=== PATIENT | female | born 1945 | race Caucasian/White ===

== ENCOUNTER 2017-10-09 12:34 | Emergency (ER) | payer MEDICARE ==
[~2017-10-09] VITALS: Ht 167.6 cm; Wt 70.3 kg
[2017-10-09 14:11] LABS: STREPTOCOCCUS GRP A ANTIGEN NEGATIVE (NEGATIVE)
--- NOTE | 2017-10-09 14:13 | Diagnostic Imaging Report ---
History:Headache for 4 days Comparison studies:None Technique: Axial images were obtained from the skull base to the vertex. Coronal and sagittal images reconstructed from the axial data. Intravenous contrast: None Findings: Scalp/skull: No abnormalities. Extra-axial spaces: Right hemispheric hypodense subdural collection measuring up to 0.8 cm in maximum thickness with mild flattening of the adjacent sulci, without midline shift or herniation. No increased densities to suggest acute component. Brain sulci: Mildly prominent. Ventricles: Mild compensatory dilatation. No hydrocephalus. Parenchyma: Few hypodensities in the supratentorial white matter are small vessel ischemic changes. No masses, acute hemorrhage, acute or chronic cortical vascular insults. Sellar/suprasellar region: No abnormalities. Craniocervical junction: Patent foramen magnum. No Chiari one malformation. Incidental findings: Atherosclerotic calcifications in the carotid siphons . Mild mucosal thickening at the left sphenoid sinus, secondary to nonspecific inflammatory changes. Impression: No acute abnormalities. Chronic findings: 1. 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 2. Mild generalized volume loss. 3. Mild supratentorial white matter small vessel ischemic changes. The above finding was reported and acknowledged by Dr. Bravo at 2:15 PM 10/09/2017. Signed by: DR Ilir Sarabia M.D. on 10/09/2017 2:19 PM
[2017-10-09 14:21] LABS: INFLUENZAE A&B ANTIGEN (RAPID) NEGATIVE (NEGATIVE)
--- NOTE | 2017-10-09 14:28 | Diagnostic Imaging Report ---
PROCEDURE:CHEST SINGLE (PORTABLE) TECHNIQUE:Portable AP chest INDICATION:Pneumonia COMPARISON:None. FINDINGS: The lungs are clear and symmetrically inflated. No pleural effusions. Normal heart size, mediastinal contour and pulmonary vasculature. Intact skeleton. CONCLUSION: No acute abnormality. Specifically, no evidence of pneumonia. Dictated by: Eder Pleitez M.D. on 10/09/2017 at 14:36 Electronically approved by: Eder Pleitez M.D. on 10/09/2017 at 14:36
[2017-10-09 16:21] LABS: CREATINE KINASE MB 1.4 ng/mL (0.00-5.00); TROPONIN I 0.005 ng/mL (0-0.300)
[2017-10-09 16:34] LABS: BASOPHILS % 0.3 % (0.0-1.0); EOSINOPHILS # (AUTO) 0.1 (0.0-0.4); EOSINOPHILS % 1.2 % (0.0-6.0); HEMATOCRIT 42.2 % (34.2-44.1); LYMPHOCYTES # (AUTO) 1.2 (1.0-3.2); LYMPHOCYTES % 11.3 % (18.0-39.1); MEAN CORPUSCULAR HEMOGLOBIN 30.9 pg (28-32); MEAN CORPUSCULAR HGB CONC 33.2 g/dL (31-35); MEAN CORPUSCULAR VOLUME 93.2 fL (81-99); MONOCYTES # (AUTO) 0.9 (0.2-0.8); MONOCYTES % 9.2 % (4.4-11.3); NEUTROPHILS % 77.8 % (38.7-80.0); PLATELET COUNT 170 x10e3/uL (140-360); RED BLOOD COUNT 4.53 x10e6/uL (3.6-5.1); RED CELL DISTRIBUTION WIDTH 12.9 % (11.7-14.4)
[2017-10-09 16:47] LABS: ALBUMIN/GLOBULIN RATIO 0.9 (0.8-2.0); ANION GAP 17.5 mmol/L (8-16); CALCIUM 9.7 mg/dL (8.4-10.2); CREATININE, SERUM 1.12 mg/dL (0.57-1.11); POTASSIUM 4.5 mmol/L (3.5-5.1)
[2017-10-09] MEDS ORDERED: SODIUM CHLORIDE 0.9% 1000ML 1,000 ML IV SCH (17:15)
--- NOTE | 2017-10-09 19:06 | Diagnostic Imaging Report ---
PROCEDURE:CTA CHEST WITH CONTRAST COMPARISON:CTA chest 12/03/10. INDICATIONS:LEFT SIDE CHEST PAIN, ELEVATED D DIMER, PE PROTOCOL TECHNIQUE: Axial CT images of the chest were obtained after the intravenous administration of 67 cc of nonionic contrast. Coronal and sagittal MIPs were made available for review. RADIATION DOSE: Total DLP: 503.0 mGy*cm Estimated effective dose: (DLP x 0.014 x size factor) mSv FINDINGS: Pulmonary arteries: The timing of the contrast bolus is suboptimal. There is mild artifact from contrast in the SVC. There are no filling defects to suggest pulmonary embolus. The main pulmonary artery measures 2.7 cm in diameter. Aorta: The ascending aorta measures 3.6 cm in diameter (previously, 3.7 cm). The descending aorta measures 2.6 cm in diameter. There is no evidence of dissection. The innominate artery and left common carotid artery share a common trunk. There is no stenosis of the great vessel origins. Lungs: Right lung: A triangle -shaped noncalcified nodule in the lower lobe measures 4 x 6 mm and is stable. There is diffuse air trapping. No consolidation. Eventration of right diaphragm is stable. There is mild subsegmental atelectasis of the overlying lung. A punctate calcified granuloma in the upper lobe is stable. Left lung: There is diffuse air trapping. Noncalcified nodule along the major fissure measures 4 mm and is stable. No consolidation. Airways: No filling defects. Pleura:No pleural effusion or pneumothorax. A calcified pleural nodule in the right middle lobe measures 5 mm and is stable. Heart \T\ Mediastinum:The heart is mildly enlarged. There is a tiny pericardial effusion. Mild coronary artery calcifications are present. The esophagus is collapsed. Upper abdomen:A cyst in the posterior right lobe of the liver measures 6.5 x 6.6 cm in the axial plane (previously, 5.8 x 5.6 cm). The attenuation is 14 Hounsfield units. There are no new hepatic lesions. There is layering sludge/tiny gallstones in the gallbladder. Fatty atrophy of the pancreas is stable. Visualized portions of the spleen, adrenal glands, and kidneys are unremarkable. Musculoskeletal:Mild degenerative changes of the spine are stable. There are no lytic or blastic lesions. CONCLUSION: 1. No pulmonary embolus or aortic dissection. 2. Diffuse air trapping is suggestive of small airways disease. 3. Stable pulmonary nodules. 4. Enlarging but simple appearing hepatic cyst. 5. Stable eventration of the right diaphragm with overlying subsegmental atelectasis. 6. Small amount of cholelithiasis versus gallbladder sludge. 7. Stable ascending aortic ectasia. Dictated by: Savana Schwarz M.D. on 10/09/2017 at 19:14 Electronically approved by: aSvana Schwarz M.D. on 10/09/2017 at 19:14
[2017-10-09 19:49] VITALS: BP 159/79
[2017-10-09] MEDS ORDERED: IOPAMIDOL 370 MG/ML 200 ML INFUS..BTL INJ ONE (22:34)
[2017-10-09] MEDS ORDERED: SODIUM CHLORIDE 0.9% 50ML 50 ML ONE (22:34)
== END 2017-10-09 19:40 | disposition short-term general hospital (02) ==
LOC: ER 12:34
DX: R07.89 Other chest pain (principal); R50.9 Fever, unspecified; R10.11 Right upper quadrant pain; I62.03 Nontraumatic chronic subdural hemorrhage; R05 Cough; I10 Essential (primary) hypertension; I25.10 Atherosclerotic heart disease of native coronary artery without angina pectoris; E78.5 Hyperlipidemia, unspecified; Z95.5 Presence of coronary angioplasty implant and graft
CPT/HCPCS: 36415; 70450; 71010; 71260; 80053; 82550; 82553; 83518; 83690; 84484; 85025; 85379; 87070; 87400; 99284; J7030; Q9967

== ENCOUNTER 2017-12-31 21:41 | Emergency (ER) | payer MEDICARE ==
[~2017-12-31] VITALS: Ht 160 cm; Wt 70.3 kg
--- OUTSIDE RECORDS SUMMARY | 2017-12-31 21:44 | XMS REPORT ---
Author Author [facility] Address Unknown Phone Unavailable Care Team Providers Care [employer] Name Role Phone MICHELLE LEE Unavailable Unavailable Problems This patient has no known problems. Allergies, Adverse Reactions, Alerts This patient has no known allergies or adverse reactions. Medications This patient has no known medications. Results Test Description Test Time Test Comments Text Results Atomic Results Result Comments CT CHEST W [address] [address] Patient Name: BARRY MANCERA MR #: [id number] : 1945 Age/Sex: 71/F Req #: [id number] Adm Physician: Ordered by: MICHELLE LEE MD Report #: [id number] Location: ER Room/Bed: Procedure: [id number] CT/CT CHEST W Exam Date: 10/09/17 Exam Time: 1820 REPORT STATUS: Signed PROCEDURE: CTA CHEST WITH CONTRAST COMPARISON : CTA chest 12/03/10. INDICATIONS: LEFT SIDE CHEST PAIN, ELEVATED D DIMER, PE PROTOCOL TECHNIQUE: Axial CT images of the chest were obtained after the intravenous administration of 67 cc of nonionic contrast. Coronal and sagittal MIPs were made available for review. RADIATION DOSE: Total DLP: 503.0 mGy*cm Estimated effective dose: (DLP x 0.014 x size factor) mSv FINDINGS: Pulmonary arteries: The timing of the contrast bolus is suboptimal. There is mild artifact from contrast in the SVC. There are no filling defects to suggest pulmonary embolus. The main pulmonary artery measures 2.7 cm in diameter. Aorta: The ascending aorta measures 3.6 cm in diameter (previously, 3.7 cm). The descending aorta measures 2.6 cm in diameter. There is no evidence of dissection. The innominate artery and left common carotid artery share a common trunk. There is no stenosis of the great vessel origins. Lungs: Right lung: A triangle -shaped noncalcified nodule in the lower lobe measures 4 x 6 mm and is stable. There is diffuse air trapping. No consolidation. Eventration of right diaphragm is stable. There is mild subsegmental atelectasis of the overlying lung. A punctate calcified granuloma in the upper lobe is stable. Left lung: There is diffuse air trapping. Noncalcified nodule along the major fissure measures 4 mm and is stable. No consolidation. Airways: No filling defects. Pleura: No pleural effusion or pneumothorax. A calcified pleural nodule in the right middle lobe measures 5 mm and is stable. Heart T Mediastinum: The heart is mildly enlarged. There is a tiny pericardial effusion. Mild coronary artery calcifications are present. The esophagus is collapsed. Upper abdomen: A cyst in the posterior right lobe of the liver measures 6.5 x 6.6 cm in the axial plane (previously, 5.8 x 5.6 cm). The attenuation is 14 Hounsfield units. There are no new hepatic lesions. There is layering sludge/tiny gallstones in the gallbladder. Fatty atrophy of the pancreas is stable. Visualized portions of the spleen, adrenal glands, and kidneys are unremarkable. Musculoskeletal: Mild degenerative changes of the spine are stable. There are no lytic or blastic lesions. CONCLUSION: 1. No pulmonary embolus or aortic dissection. 2. Diffuse air trapping is suggestive of small airways disease. 3. Stable pulmonary nodules. 4. Enlarging but simple appearing hepatic cyst. 5. Stable eventration of the right diaphragm with overlying subsegmental atelectasis. 6. Small amount of cholelithiasis versus gallbladder sludge. 7. Stable ascending aortic ectasia. Dictated by: Jeremy Schwarz M.D. on 10/09/2017 at 19:14 Electronically approved by: Jeremy Schwarz M.D. on 10/09/2017 at 19:14 Dictated By: JEREMY SCHWARZ MD 13 Transcribed By : KAYLEEN on 10/09/171913 COPY TO: MICHELLE LEE MD CT BRAIN WO [place] [address] Patient Name: BARRY MANCERA MR #: [id number] : 1945 Age/Sex: 71/F Req #: [id number] Adm Physician: Ordered by: MICHELLE LEE MD Report #: [id number] Location: ER Room/Bed: Procedure: [id number] CT/CT BRAIN WO Exam Date: Exam Time: REPORT STATUS: Signed History:Headache for 4 days Comparison studies:None Technique: Axial images were obtained from the skull base to the vertex. Coronal and sagittal images reconstructed from the axial data. Intravenous contrast: None Findings: Scalp/skull: No abnormalities. Extra- axial spaces: Right hemispheric hypodense subdural collection measuring up to 0.8 cm in maximum thickness with mild flattening of the adjacent sulci, without midline shift or herniation. No increased densities to suggest acute component. Brain sulci: Mildly prominent. Ventricles: Mild compensatory dilatation. No hydrocephalus. Parenchyma: Few hypodensities in the supratentorial white matter are small vessel ischemic changes. No masses, acute hemorrhage, acute or chronic cortical vascular insults. Sellar/ suprasellar region: No abnormalities. Craniocervical junction: Patent foramen magnum. No Chiari one malformation. Incidental findings: Atherosclerotic calcifications in the carotid siphons . Mild mucosal thickening at the left sphenoid sinus, secondary to nonspecific inflammatory changes. Impression: No acute abnormalities. Chronic findings: 1. 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 2. Mild generalized volume loss. 3. Mild supratentorial white matter small vessel ischemic changes. The above finding was reported and acknowledged by Dr. Lee at 2:15 PM 10/09/2017. Signed by: DR Ilir Sarabia M.D. on 10/09/2017 2:19 PM Dictated By: ILIR MCELROY MD 18 Transcribed By: PREM on 10/09/171418 COPY TO: MICHELLE LEE MD CHEST SINGLE (PORTABLE) [place] [address] Patient Name: BARRY MANCERA MR #: [id number] : 1945 Age/Sex: 71/F Req #: [id number] Adm Physician: Ordered by: MICHELLE LEE MD Report #: [id number] Location: ER Room/Bed: Procedure: [id number] DX/CHEST SINGLE (PORTABLE) Exam Date: Exam Time: REPORT STATUS: Signed PROCEDURE: CHEST SINGLE ( PORTABLE) TECHNIQUE: Portable AP chest INDICATION: Pneumonia COMPARISON: None. FINDINGS: The lungs are clear and symmetrically inflated. No pleural effusions. Normal heart size, mediastinal contour and pulmonary vasculature. Intact skeleton. CONCLUSION: No acute abnormality. Specifically, no evidence of pneumonia. Dictated by: Aldair Pleitez M.D. on 10/09/2017 at 14:36 Electronically approved by: Aldair Pleitez M.D. on 10/09/2017 at 14:36 Dictated By: ALDAIR PLEITEZ MD [id number] Transcribed By: KAYLEEN on 10/09/17 143 COPY TO: MICHELLE LEE MD
[2017-12-31] MEDS ORDERED: METOPROLOL SUCC25 MG (22:54)
[2017-12-31] MEDS ORDERED: LOSARTAN POTAS100 MG PO (22:54)
[2018-01-01 00:49] VITALS: BP 162/88
== END 2018-01-01 01:00 | disposition home or self-care (01) ==
LOC: ER 21:41
DX: I10 Essential (primary) hypertension (principal)
CPT/HCPCS: 93005; 99282

== ENCOUNTER 2020-10-29 23:35 | Emergency (ER) | payer MEDICARE ==
[~2020-10-29] VITALS: Ht 157.5 cm; Wt 65.8 kg
[~2020-10-29 23:35] MED LIST: LOSARTAN POTAS100 MG PO; METOPROLOL SUCC25 MG
== END 2020-10-30 00:35 | disposition home or self-care (01) ==
LOC: ER 23:39
DX: I10 Essential (primary) hypertension (principal); E78.5 Hyperlipidemia, unspecified; E78.00 Pure hypercholesterolemia, unspecified; Z95.5 Presence of coronary angioplasty implant and graft
CPT/HCPCS: 93005; 99282

== ENCOUNTER 2021-02-18 08:48 | Emergency (ER) | payer MEDICARE ==
[~2021-02-18] VITALS: Ht 157.5 cm; Wt 65.8 kg
[2021-02-18] MEDS ORDERED: SODIUM CHLORIDE 0.9% 1000ML 1,000 ML IV STA (09:11)
[2021-02-18] MEDS ORDERED: ONDANSETRON HCL INJ 2MG/ML 2ML 2 MG/ML VIAL IV STA (09:11)
[2021-02-18] MEDS ORDERED: PANTOPRAZOLE 40 MG 10ML VIAL IV STA (09:11)
[2021-02-18] MEDS ORDERED: SODIUM CHLORIDE 0.9% 1000ML 1,000 ML ONE (09:25)
[2021-02-18 09:35] LABS: BASOPHILS # (AUTO) 0.1 (0.0-0.1); BASOPHILS % 0.4 % (0.0-1.0); EOSINOPHILS # (AUTO) 0.1 (0.0-0.4); EOSINOPHILS % 0.2 % (0.0-6.0); HEMATOCRIT 36.8 % (34.2-44.1); HEMOGLOBIN 11.8 g/dL (12.0-16.0); LYMPHOCYTES # (AUTO) 2.5 (1.0-3.2); LYMPHOCYTES % 7.7 % (18.0-39.1); MEAN CORPUSCULAR HEMOGLOBIN 30.6 pg (28-32); MEAN CORPUSCULAR HGB CONC 32.1 g/dL (31-35); MEAN CORPUSCULAR VOLUME 95.3 fL (81-99); MONOCYTES # (AUTO) 1.8 (0.2-0.8); MONOCYTES % 5.4 % (4.4-11.3); NEUTROPHILS # (AUTO) 20.8 (2.1-6.9); NEUTROPHILS % 64.3 % (38.7-80.0); PLATELET COUNT 200 x10e3/uL (140-360); RED BLOOD COUNT 3.86 x10e6/uL (3.6-5.1); RED CELL DISTRIBUTION WIDTH 13.2 % (11.7-14.4)
[2021-02-18 09:48] LABS: CLARITY,URINE CLEAR (CLEAR); COLOR,URINE YELLOW (YELLOW)
[2021-02-18 09:49] LABS: KETONES,URINE NEGATIVE (NEGATIVE); LEUKOCYTE ESTERASE ,URINE TRACE (NEGATIVE); NITRITE,URINE NEGATIVE (NEGATIVE); PROTEIN,URINE DIPSTICK NEGATIVE (NEGATIVE); URINE UROBILINOGEN 0.2 mg/dL (0.2 - 1)
[2021-02-18 09:59] LABS: ALANINE AMINOTRANSFERASE 22 IU/L (0-55); ALBUMIN 3.4 g/dL (3.5-5.0); ALBUMIN/GLOBULIN RATIO 0.9 (0.8-2.0); ALKALINE PHOSPHATASE 98 IU/L (40-150); ANION GAP 15.9 mmol/L (8-16); BLOOD UREA NITROGEN 13 mg/dL (7-26); BUN/CREATININE RATIO 11 (6-25); CALCIUM 9.5 mg/dL (8.4-10.2); CARBON DIOXIDE 27 mmol/L (22-29); CHLORIDE 99 mmol/L (98-107); CREATINE KINASE 50 IU/L (29-168); CREATININE, SERUM 1.16 mg/dL (0.57-1.11); EST GLOMERULAR FILTRATION RATE 46 ML/MIN (60-); GLUCOSE 113 mg/dL (74-118); MAGNESIUM 2.1 MG/DL (1.3-2.1); POTASSIUM 3.9 mmol/L (3.5-5.1); SODIUM 138 mmol/L (136-145)
[2021-02-18 10:07] LABS: BACTERIA,URINE RARE /HPF; EPITHELIAL CELLS,URINE FEW /LPF; RBC,URINE 21-50 /HPF (0-5); WBC,URINE (MAN) >50 /HPF (0-5)
[2021-02-18 10:13] LABS: INR 0.92; PROTHROMBIN TIME 12.9 seconds (11.9-14.5)
[2021-02-18] MEDS ORDERED: VANCOMYCIN 1GM/NS 250 ML 250 ML IV ONE (10:15)
[2021-02-18 10:18] LABS: THYROID STIMULATING HORMONE 3.737 uIU/mL (0.350-4.940)
[2021-02-18 10:24] LABS: PARTIAL THROMBOPLASTIN TIME 24.2 seconds (23.8-35.5)
[2021-02-18] MEDS ORDERED: CEFEPIME 2 GM/NS 0.9% 100 ML 100 ML IV SCH (10:30)
[2021-02-18] MEDS ORDERED: PIPERACILLIN/TAZOBAC 3.375 GM in SODIUM CHLORIDE 0.9% 50ML 50 ML IV SCH (11:00)
[2021-02-18] MEDS ORDERED: SODIUM CHLORIDE 0.9% 250ML 250 ML ONE (11:44)
[2021-02-18 12:46] LABS: BAND NEUTROPHILS % (MANUAL) 2 %; LYMPHOCYTES % (MANUAL) 4 % (19-48); MONOCYTES % (MANUAL) 3 % (3.4-9.0); MYELOCYTES % (MANUAL) 15 % (0-0); NEUTROPHILS % (MANUAL) 76 % (40-74); NUCLEATED RED BLOOD CELLS 2
== END 2021-02-18 15:33 | disposition other institution (70) ==
LOC: ER 09:05
DX: R42 Dizziness and giddiness (principal); N39.0 Urinary tract infection, site not specified; D72.829 Elevated white blood cell count, unspecified; I10 Essential (primary) hypertension; I25.10 Atherosclerotic heart disease of native coronary artery without angina pectoris; E78.5 Hyperlipidemia, unspecified; N18.9 Chronic kidney disease, unspecified; E78.00 Pure hypercholesterolemia, unspecified; Z20.822 Contact with and (suspected) exposure to COVID-19
CPT/HCPCS: 36415; 70450; 71045; 80053; 81001; 82550; 82553; 83605; 83735; 84443; 84484; 85025; 85610; 85730; 87040; 87086; 93005; 99284; C9113; J2405; J2543; J3370; J7030; J7050; U0002

== ENCOUNTER 2021-03-25 08:57 | Inpatient (IN) | payer MEDICARE ==
[~2021-03-25] VITALS: Ht 157.5 cm; Wt 64.0 kg
[~2021-03-25 08:57] MED LIST changes: -METOPROLOL SUCC25 MG; +METOPROLOL SUCC25 MG PO
[2021-03-25] MEDS ORDERED: SODIUM CHLORIDE 0.9% 1000ML 1,000 ML IV STA (09:11)
[2021-03-25] MEDS ORDERED: CEFEPIME 2 GM in SODIUM CHLORIDE 0.9% 100 ML IV ONE (09:30)
[2021-03-25] MEDS ORDERED: Vancomycin IV 1 GM in SODIUM CHLORIDE 0.9% 250ML 250 ML IV ONE (09:30)
[2021-03-25 09:48] LABS: BASOPHILS # (AUTO) 0.2 (0.0-0.1); EOSINOPHILS # (AUTO) 0.1 (0.0-0.4); EOSINOPHILS % 1.5 % (0.0-6.0); HEMATOCRIT 29.9 % (34.2-44.1); HEMOGLOBIN 9.6 g/dL (12.0-16.0); LYMPHOCYTES # (AUTO) 0.3 (1.0-3.2); MEAN CORPUSCULAR HEMOGLOBIN 30.2 pg (28-32); MEAN CORPUSCULAR HGB CONC 32.1 g/dL (31-35); MONOCYTES # (AUTO) 0.1 (0.2-0.8); MONOCYTES % 0.8 % (4.4-11.3); NEUTROPHILS # (AUTO) 5.9 (2.1-6.9); NEUTROPHILS % 79.1 % (38.7-80.0); PLATELET COUNT 170 x10e3/uL (140-360); RED BLOOD COUNT 3.18 x10e6/uL (3.6-5.1); RED CELL DISTRIBUTION WIDTH 14.2 % (11.7-14.4)
[2021-03-25 10:11] LABS: ALANINE AMINOTRANSFERASE 18 IU/L (0-55); ALBUMIN 2.8 g/dL (3.5-5.0); ALBUMIN/GLOBULIN RATIO 0.8 (0.8-2.0); ALKALINE PHOSPHATASE 77 IU/L (40-150); ANION GAP 15.1 mmol/L (8-16); BLOOD UREA NITROGEN 21 mg/dL (7-26); BUN/CREATININE RATIO 19 (6-25); CALCIUM 8.2 mg/dL (8.4-10.2); CARBON DIOXIDE 24 mmol/L (22-29); CHLORIDE 97 mmol/L (98-107); CREATINE KINASE 39 IU/L (29-168); CREATININE, SERUM 1.13 mg/dL (0.57-1.11); EST GLOMERULAR FILTRATION RATE 47 ML/MIN (60-); GLUCOSE 148 mg/dL (74-118); POTASSIUM 4.1 mmol/L (3.5-5.1); SODIUM 132 mmol/L (136-145)
[2021-03-25 10:51] LABS: CLARITY,URINE TURBID (CLEAR); COLOR,URINE BROWN (YELLOW)
[2021-03-25 10:52] LABS: BACTERIA,URINE MANY /HPF; KETONES,URINE NEGATIVE (NEGATIVE); LEUKOCYTE ESTERASE ,URINE LARGE (NEGATIVE); NITRITE,URINE POSITIVE (NEGATIVE); PROTEIN,URINE DIPSTICK >=300 (NEGATIVE); URINE UROBILINOGEN 1 mg/dL (0.2 - 1); WBC,URINE (MAN) >50 /HPF (0-5)
[2021-03-25] MEDS ORDERED: SODIUM CHLORIDE 0.9% 500ML 500 ML IV ONE (11:45)
[2021-03-25] MEDS ORDERED: SODIUM CHLORIDE 0.9% 500ML 500 ML ONE (12:09)
[2021-03-25] MEDS ORDERED: ONDANSETRON HCL INJ 2MG/ML 2ML 2 MG/ML VIAL IV PRN (12:45)
[2021-03-25 12:50] LABS: BAND NEUTROPHILS % (MANUAL) 2 %; LYMPHOCYTES % (MANUAL) 3 % (19-48); METAMYELOCYTES % (MANUAL) 9 % (0-0); MONOCYTES % (MANUAL) 2 % (3.4-9.0); MYELOCYTES % (MANUAL) 32 % (0-0); NEUTROPHILS % (MANUAL) 51 % (40-74); PROMYELOCYTES % (MANUAL) 1 % (0-0)
[2021-03-25 12:51] LABS: ANISOCYTOSIS SLIGHT; PLATELET ESTIMATE ADEQUATE; PLATELET MORPHOLOGY COMMENT NORMAL
[2021-03-25 17:57] VITALS: BP 133/60
[2021-03-25 17:59] VITALS: BP 133/60
[2021-03-25 18:03] VITALS: BP 133/60
[2021-03-25] MEDS: SODIUM CHLORIDE 0.9% 1000ML 1,000 ML IV SCH (18:18)
[2021-03-25 20:00] VITALS: BP 123/62
[2021-03-25] MEDS: ACETAMINOPHEN 325 MG TAB PO PRN (20:38)
[2021-03-25] MEDS: ENOXAPARIN SOD INJ 40 MG/0.4 ML SYR SC SCH (20:54)
[2021-03-25] MEDS ORDERED: CEFEPIME 2 GM in SODIUM CHLORIDE 0.9% 100 ML IV SCH (21:00)
[2021-03-25] MEDS: PIPERACILLIN/TAZOBACTAM 3.375 GM in SODIUM CHLORIDE 0.9% 50ML 50 ML IV SCH (21:25)
[2021-03-26] VITALS (8 sets, daily range): BP systolic 115–143; BP diastolic 62–73
[2021-03-26 05:13] LABS: BASOPHILS % 0.9 % (0.0-1.0); EOSINOPHILS # (AUTO) 0.1 (0.0-0.4); EOSINOPHILS % 3.5 % (0.0-6.0); HEMATOCRIT 28.4 % (34.2-44.1); HEMOGLOBIN 8.8 g/dL (12.0-16.0); LYMPHOCYTES # (AUTO) 0.5 (1.0-3.2); MEAN CORPUSCULAR HEMOGLOBIN 30.1 pg (28-32); MONOCYTES # (AUTO) 0.1 (0.2-0.8); MONOCYTES % 3.1 % (4.4-11.3); NEUTROPHILS # (AUTO) 1.3 (2.1-6.9); NEUTROPHILS % 55.8 % (38.7-80.0); PLATELET COUNT 111 x10e3/uL (140-360); RED BLOOD COUNT 2.92 x10e6/uL (3.6-5.1); RED CELL DISTRIBUTION WIDTH 14.2 % (11.7-14.4)
[2021-03-26 05:14] LABS: MEAN CORPUSCULAR VOLUME 97.3 fL (81-99)
[2021-03-26 05:36] LABS: ALBUMIN 2.4 g/dL (3.5-5.0); ALBUMIN/GLOBULIN RATIO 0.7 (0.8-2.0); ANION GAP 13.2 mmol/L (8-16); CALCIUM 8.3 mg/dL (8.4-10.2); CREATININE, SERUM 0.93 mg/dL (0.57-1.11); POTASSIUM 4.2 mmol/L (3.5-5.1)
[2021-03-26] MEDS: SODIUM CHLORIDE 0.9% 1000ML 1,000 ML IV SCH (05:45)
[2021-03-26] MEDS: PIPERACILLIN/TAZOBACTAM 3.375 GM in SODIUM CHLORIDE 0.9% 50ML 50 ML IV SCH ×3 (05:46→22:10)
[2021-03-26] MEDS ORDERED: ATORVASTATIN CA20 MG PO (08:54)
[2021-03-26] MEDS ORDERED: FAMOTIDINE20 MG PO (08:54)
[2021-03-26] MEDS ORDERED: CYCLOSPORINE25 MG PO (08:54)
[2021-03-26] MEDS ORDERED: ASPIRIN CHEW81 MG PO (08:54)
[2021-03-26] MEDS ORDERED: MULTI-VITAMIN1 EACH PO (09:00)
[2021-03-26] MEDS ORDERED: LEVOTHYROXINE88 MC1 PO (09:00)
[2021-03-26] MEDS ORDERED: FISH OIL 1,0001 EA10 (09:00)
[2021-03-26] MEDS ORDERED: ZOFRAN4 MG PO (09:01)
[2021-03-26] MEDS ORDERED: VALSARTAN320 MG PO (09:07)
[2021-03-26] MEDS ORDERED: PANTOPRAZOLE SO40 MG PO (09:07)
[2021-03-26] MEDS ORDERED: TYLENOL325 MG PO (09:07)
[2021-03-26] MEDS ORDERED: DIOVAN160 MG PO (09:20)
[2021-03-26 12:09] LABS: EOSINOPHILS % (MANUAL) 2 % (0-7); LYMPHOCYTES % (MANUAL) 29 % (19-48); MONOCYTES % (MANUAL) 7 % (3.4-9.0); MYELOCYTES % (MANUAL) 6 % (0-0); NEUTROPHILS % (MANUAL) 56 % (40-74)
[2021-03-26 12:10] LABS: HYPOCHROMASIA S; PLATELET ESTIMATE SLIGHTLY DECREASED; POLYCHROMASIA S; RBC MORPHOLOGY COMMENT ABNORMAL
[2021-03-26] MEDS: FILGRASTIM 300 MCG/ML VIAL SC SCH (15:00)
[2021-03-26] MEDS: ENOXAPARIN SOD INJ 40 MG/0.4 ML SYR SC SCH (17:00)
[2021-03-27] VITALS (9 sets, daily range): BP systolic 113–132; BP diastolic 53–69
[2021-03-27] MEDS: SODIUM CHLORIDE 0.9% 1000ML 1,000 ML IV SCH ×2 (01:17→02:22)
[2021-03-27] MEDS: PIPERACILLIN/TAZOBACTAM 3.375 GM in SODIUM CHLORIDE 0.9% 50ML 50 ML IV SCH (05:34)
[2021-03-27 06:06] LABS: HEMOGLOBIN 7.3 g/dL (12.0-16.0); MEAN CORPUSCULAR HEMOGLOBIN 30.2 pg (28-32); MEAN CORPUSCULAR HGB CONC 32.4 g/dL (31-35); PLATELET COUNT 117 x10e3/uL (140-360); RED BLOOD COUNT 2.42 x10e6/uL (3.6-5.1); RED CELL DISTRIBUTION WIDTH 13.7 % (11.7-14.4)
[2021-03-27 06:17] LABS: HEMATOCRIT 22.5 % (34.2-44.1)
[2021-03-27] MEDS ORDERED: ONDANSETRON HCL 4 MG ORAL DISINTEGRATING TAB PO PRN (10:00)
[2021-03-27 10:34] LABS: EOSINOPHILS % (MANUAL) 20 % (0-7); LYMPHOCYTES % (MANUAL) 36 % (19-48); MONOCYTES % (MANUAL) 24 % (3.4-9.0); NEUTROPHILS % (MANUAL) 20 % (40-74)
[2021-03-27 10:35] LABS: PLATELET ESTIMATE SLIGHTLY DECREASED; PLATELET MORPHOLOGY COMMENT NORMAL; RBC MORPHOLOGY COMMENT NORMAL
[2021-03-27] MEDS: MEROPENEM 500 MG in SODIUM CHLORIDE 0.9% 50ML 50 ML IV SCH ×2 (10:56→16:42)
[2021-03-27] MEDS: ACETAMINOPHEN 325 MG TAB PO PRN (16:09)
[2021-03-27] MEDS: LACTOBACILLUS ACIDOPHILUS CAPSULE PO SCH (16:09)
[2021-03-27] MEDS: FILGRASTIM 300 MCG/ML VIAL SC SCH (16:09)
[2021-03-27] MEDS: ENOXAPARIN SOD INJ 40 MG/0.4 ML SYR SC SCH (16:09)
[2021-03-28] VITALS (7 sets, daily range): BP systolic 116–127; BP diastolic 54–68
[2021-03-28] MEDS: MEROPENEM 500 MG in SODIUM CHLORIDE 0.9% 50ML 50 ML IV SCH ×3 (00:28→11:36)
[2021-03-28 06:04] LABS: BASOPHILS % 2.6 % (0.0-1.0); EOSINOPHILS # (AUTO) 0.1 (0.0-0.4); EOSINOPHILS % 11.5 % (0.0-6.0); HEMOGLOBIN 7.1 g/dL (12.0-16.0); LYMPHOCYTES # (AUTO) 0.3 (1.0-3.2); LYMPHOCYTES % 33.3 % (18.0-39.1); MEAN CORPUSCULAR HEMOGLOBIN 30.2 pg (28-32); MEAN CORPUSCULAR HGB CONC 31.4 g/dL (31-35); MEAN CORPUSCULAR VOLUME 96.2 fL (81-99); MONOCYTES # (AUTO) 0.4 (0.2-0.8); MONOCYTES % 44.9 % (4.4-11.3); NEUTROPHILS # (AUTO) 0.1 (2.1-6.9); NEUTROPHILS % 7.7 % (38.7-80.0); PLATELET COUNT 137 x10e3/uL (140-360); RED BLOOD COUNT 2.35 x10e6/uL (3.6-5.1); RED CELL DISTRIBUTION WIDTH 13.8 % (11.7-14.4)
[2021-03-28 06:12] LABS: HEMATOCRIT 22.6 % (34.2-44.1)
[2021-03-28 06:25] LABS: ANION GAP 7.4 mmol/L (8-16); CALCIUM 7.5 mg/dL (8.4-10.2); CREATININE, SERUM 0.82 mg/dL (0.57-1.11); POTASSIUM 3.4 mmol/L (3.5-5.1)
[2021-03-28] MEDS ORDERED: ACETAMINOPHEN 325 MG TAB PO STA (08:59)
[2021-03-28] MEDS ORDERED: DEXAMETHASONE SOD PHOS 10 MG/1 ML VIAL IV ONE (09:00)
[2021-03-28] MEDS ORDERED: DIPHENHYDRAMINE HCL INJ 50 MG/ML VIAL IV ONE (09:00)
[2021-03-28 09:19] LABS: BAND NEUTROPHILS % (MANUAL) 2 %; EOSINOPHILS % (MANUAL) 8 % (0-7); LYMPHOCYTES % (MANUAL) 47 % (19-48); MONOCYTES % (MANUAL) 34 % (3.4-9.0); NEUTROPHILS % (MANUAL) 9 % (40-74); PLATELET ESTIMATE SLIGHTLY DECREASED; PLATELET MORPHOLOGY COMMENT NORMAL
[2021-03-28 09:20] LABS: RBC MORPHOLOGY COMMENT NORMAL
[2021-03-28] MEDS ORDERED: SODIUM CHLORIDE 0.9% 250ML 250 ML IV ONE (09:30)
[2021-03-28] MEDS: LACTOBACILLUS ACIDOPHILUS CAPSULE PO SCH ×2 (11:36→17:00)
[2021-03-28] MEDS: FILGRASTIM 300 MCG/ML VIAL SC SCH (16:00)
[2021-03-28] MEDS: ENOXAPARIN SOD INJ 40 MG/0.4 ML SYR SC SCH (17:00)
[2021-03-29] VITALS (7 sets, daily range): BP systolic 121–135; BP diastolic 60–78
[2021-03-29] MEDS: MEROPENEM 500 MG in SODIUM CHLORIDE 0.9% 50ML 50 ML IV SCH ×4 (00:02→23:57)
[2021-03-29 05:35] LABS: BASOPHILS % 0.5 % (0.0-1.0); EOSINOPHILS % 0.2 % (0.0-6.0); HEMATOCRIT 30.2 % (34.2-44.1); HEMOGLOBIN 10.1 g/dL (12.0-16.0); LYMPHOCYTES # (AUTO) 0.6 (1.0-3.2); LYMPHOCYTES % 11.2 % (18.0-39.1); MEAN CORPUSCULAR HEMOGLOBIN 30.1 pg (28-32); MEAN CORPUSCULAR HGB CONC 33.4 g/dL (31-35); MEAN CORPUSCULAR VOLUME 90.1 fL (81-99); NEUTROPHILS # (AUTO) 3.7 (2.1-6.9); NEUTROPHILS % 67.3 % (38.7-80.0); PLATELET COUNT 179 x10e3/uL (140-360); RED BLOOD COUNT 3.35 x10e6/uL (3.6-5.1); RED CELL DISTRIBUTION WIDTH 14.1 % (11.7-14.4)
[2021-03-29] MEDS: LACTOBACILLUS ACIDOPHILUS CAPSULE PO SCH ×2 (08:19→17:00)
[2021-03-29 09:24] LABS: BAND NEUTROPHILS % (MANUAL) 12 %; LYMPHOCYTES % (MANUAL) 16 % (19-48); METAMYELOCYTES % (MANUAL) 12 % (0-0); MONOCYTES % (MANUAL) 21 % (3.4-9.0); MYELOCYTES % (MANUAL) 19 % (0-0); NEUTROPHILS % (MANUAL) 20 % (40-74)
[2021-03-29 09:29] LABS: PLATELET ESTIMATE ADEQUATE; PLATELET MORPHOLOGY COMMENT NORMAL; RBC MORPHOLOGY COMMENT NORMAL
[2021-03-29] MEDS ORDERED: SODIUM CHLORIDE 0.9% 250ML 250 ML ONE (14:00)
[2021-03-29] MEDS: ACETAMINOPHEN 325 MG TAB PO PRN (14:47)
[2021-03-29] MEDS: ENOXAPARIN SOD INJ 40 MG/0.4 ML SYR SC SCH (17:00)
[2021-03-30 00:10] VITALS: BP 137/80
[2021-03-30 04:10] VITALS: BP 140/74
[2021-03-30] MEDS: MEROPENEM 500 MG in SODIUM CHLORIDE 0.9% 50ML 50 ML IV SCH ×2 (06:04→12:10)
[2021-03-30 07:55] VITALS: BP 142/66
[2021-03-30] MEDS: LACTOBACILLUS ACIDOPHILUS CAPSULE PO SCH (08:32)
[2021-03-30 08:59] VITALS: BP 142/66
[2021-03-30] MEDS ORDERED: TRIMETHOPRIM/SULFAMETHOXAZOLE 160-800 MG TAB PO ONE (10:00)
[2021-03-30 11:39] VITALS: BP 133/78
[2021-03-30] MEDS ORDERED: BACTRIM DS TAB1 EACH PO (14:17)
== END 2021-03-30 14:47 | disposition home or self-care (01) | DRG 871 ==
LOC: ER 09:14 → ERHOLD 12:48 → MED/SURG 17:35
PROVIDERS: ADMIT Internal Medicine; ATTEND Internal Medicine
DX: A41.9 Sepsis, unspecified organism (principal); G93.41 Metabolic encephalopathy; D61.810 Antineoplastic chemotherapy induced pancytopenia; N39.0 Urinary tract infection, site not specified; E87.1 Hypo-osmolality and hyponatremia; Z16.12 Extended spectrum beta lactamase (ESBL) resistance; C50.919 Malignant neoplasm of unspecified site of unspecified female breast; I10 Essential (primary) hypertension; D70.1 Agranulocytosis secondary to cancer chemotherapy; R50.81 Fever presenting with conditions classified elsewhere; D69.59 Other secondary thrombocytopenia; T45.1X5A Adverse effect of antineoplastic and immunosuppressive drugs, initial encounter; D50.0 Iron deficiency anemia secondary to blood loss (chronic); B96.20 Unspecified Escherichia coli [E. coli] as the cause of diseases classified elsewhere; I25.10 Atherosclerotic heart disease of native coronary artery without angina pectoris; Z96.651 Presence of right artificial knee joint
CPT/HCPCS: 36415; 70450; 71045; 80048; 80053; 81001; 82550; 82553; 82948; 83605; 83735; 84484; 85007; 85025; 85027; 86850; 86900; 86920; 87040; 87086; 87186; 93005; 99251; 99284; J0692; J1100; J1200; J1442; J1650; J2185; J2543; J3370; J7030; J7040; J7050; P9016; U0002

== ENCOUNTER 2024-08-13 18:03 | Emergency (ER) | payer MEDICARE ==
[~2024-08-13] VITALS: Ht 157.5 cm; Wt 64.0 kg
[~2024-08-13 18:03] MED LIST changes: +ASPIRIN CHEW81 MG PO; +ATORVASTATIN CA20 MG PO; +BACTRIM DS TAB1 EACH PO; +CYCLOSPORINE25 MG PO; +DIOVAN160 MG PO; +FAMOTIDINE20 MG PO; +FISH OIL 1,0001 EA10; +LEVOTHYROXINE88 MC1 PO; +MULTI-VITAMIN1 EACH PO; +PANTOPRAZOLE SO40 MG PO; +TYLENOL325 MG PO; +VALSARTAN320 MG PO; +ZOFRAN4 MG PO
[2024-08-13 18:18] VITALS: TEMP 98.5
[2024-08-13 18:38] VITALS: BP 204/88
[2024-08-13] MEDS: CLONIDINE HCL 0.1 MG TAB PO ONE (18:38)
[2024-08-13 19:30] VITALS: PULSE 57; RESP 20; O2SAT 95
== END 2024-08-13 20:00 | disposition home or self-care (01) ==
LOC: ER 18:14
DX: I10 Essential (primary) hypertension (principal); E03.9 Hypothyroidism, unspecified; I25.10 Atherosclerotic heart disease of native coronary artery without angina pectoris; K21.9 Gastro-esophageal reflux disease without esophagitis; E78.5 Hyperlipidemia, unspecified; N28.9 Disorder of kidney and ureter, unspecified; R94.31 Abnormal electrocardiogram [ECG] [EKG]; Z85.3 Personal history of malignant neoplasm of breast
CPT/HCPCS: 93005; 99282